=== PATIENT | male | born 1975 | race American Indian/Alaskan Native ===

== ENCOUNTER 2020-12-06 04:51 | Emergency (ER) | payer SELFPAY ==
--- NOTE | 2020-12-06 05:47 | Event Note ---
ED Screening Note Date of service: 12/06/20 Time: 05:46 ED Screening Note: Patient complains of headache and vision changes Out of BP meds, normally takes amlodipine No prior history of stroke per patient BP noted to be within normal limits here in triage Heart rate 111 This initial assessment/diagnostic orders/clinical plan/treatment(s) is/are subject to change based on patients health status, clinical progression and re- assessment by fellow clinical providers in the ED. Further treatment and workup at subsequent clinical providers discretion. Patient/guardian urged not to elope from the ED as their condition may be serious if not clinically assessed and managed. Initial orders include: Labs
--- NOTE | 2020-12-06 06:16 | XRay Report ---
CHEST 2 VIEWS INDICATION: Palpitations. COMPARISON: None. FINDINGS: Support devices: None. Heart: Within normal limits. Lungs/Pleura: No acute air space or interstitial disease. No significant pleural effusion. IMPRESSION: No acute findings. Signer Name: Jez Marte MD Signed: 12/06/2020 6:12 AM Workstation Name: [id number]
[2020-12-06 06:29] LABS: Hematocrit 41.9 % (35.5-45.6); Hemoglobin 14.3 gm/dl (11.8-15.2); Mean Corpuscular HGB Conc 34 % (32-34); Mean Corpuscular Volume 85 fl (84-94); Platelet Count 301 K/mm3 (140-440); Red Blood Count 4.94 M/mm3 (3.65-5.03); Red Cell Distribution Width 13.9 % (13.2-15.2)
[2020-12-06 06:37] LABS: Basophils % (Auto) 0.3 % (0.0-1.8); Eosinophils # (Auto) 0.1 K/mm3 (0.0-0.4); Eosinophils % (Auto) 0.4 % (0.0-4.3); Lymphocytes # (Auto) 0.9 K/mm3 (1.2-5.4); Lymphocytes % (Auto) 5.2 % (13.4-35.0); Monocytes # (Auto) 0.8 K/mm3 (0.0-0.8); Monocytes % (Auto) 4.6 % (0.0-7.3)
[2020-12-06 06:54] LABS: Alanine Aminotransferase 35 units/L (7-56); Albumin 4.2 g/dL (3.9-5); BUN/Creatinine Ratio 9; Blood Urea Nitrogen 12 mg/dL (9-20); Calcium 8.5 mg/dL (8.4-10.2); Hemolysis Index 3
[2020-12-06 07:34] VITALS: BP 124/66
--- NOTE | 2020-12-06 09:05 | Emergency Department Report ---
HPI - General Chief Complaint: High BP Time Seen by Provider: 12/06/20 08:32 - HPI HPI: This is a 45-year-old male who presents to the emergency department with complaint of some intermittent numbness/paresthesias, intermittent blurry vision, and concern for uncontrolled blood pressure. The patient does have a history of hypertension for which she was previously on amlodipine 10 mg/day. He has not been following with a primary care physician for the past 1 to 2 years. He has been sporadically taking the blood pressure medication when he is able to get some from other people. At the time of my examination the patient is asymptomatic. He denies any fever, chest pain, shortness of breath, lower extremity swelling, nausea, vomiting, diaphoresis but did previously have some palpitations. No recent travel or sick contacts at home. He is a tobacco smoker. ED Past Medical Hx - Past Medical History Previous Medical History?: Yes Hx Hypertension: Yes Additional medical history: chronic back pain - Social History Smoking Status: Current Every Day Smoker - Medications Home Medications: Home Medications Medication Instructions Recorded Confirmed Last Taken Type Amoxicillin [Trimox CAP] 1,000 mg PO Q8H #60 capsule 05/27/13 Unknown Rx Prednisone 40 mg PO QDAY #10 tablet 05/27/13 Unknown Rx lisinopriL [Zestril TAB] 10 mg PO QDAY #30 tablet 05/27/13 Unknown Rx amLODIPine 5 mg PO DAILY #30 tab 12/06/20 Unknown Rx ED Review of Systems ROS: Stated complaint: HIGH BLOOD PRESSURE Other details as noted in HPI Comment: All other systems reviewed and negative Constitutional: denies: chills, fever Eyes: vision change (Resolved). denies: eye pain ENT: denies: ear pain, throat pain Respiratory: denies: cough, shortness of breath Cardiovascular: palpitations (Resolved). denies: chest pain Gastrointestinal: denies: abdominal pain, vomiting Genitourinary: denies: dysuria, discharge Musculoskeletal: denies: back pain, arthralgia Skin: denies: rash, lesions Neurological: denies: numbness (Resolved), paresthesias (Resolved) Physical Exam - Physical Exam Vital Signs: Vital Signs 12/06/20 12/06/20 05:33 07:33 Temperature 99.2 F 98.8 F Pulse Rate 111 H 94 H Respiratory 20 16 Rate Blood Pressure 139/93 Blood Pressure 124/66 [Right] O2 Sat by Pulse 99 100 Oximetry Physical Exam: GENERAL: The patient is well-developed well-nourished. HENT: Normocephalic. Atraumatic. Patient has moist mucous membranes. Oropharynx is clear without tonsillar hypertrophy, erythema or exudates. Patient has poor dentition but there is no palpable or visible abscess is seen. No drooling or trismus. EYES: Extraocular motions are intact. No nystagmus. NECK: Supple. Trachea is midline. CHEST/LUNGS: Clear to auscultation. There is no respiratory distress noted. HEART/CARDIOVASCULAR: Regular. There is no tachycardia. There is no murmur. ABDOMEN: Abdomen is soft, nontender. Patient has normal bowel sounds. There is no abdominal distention. SKIN: Skin is warm and dry. NEURO: The patient is awake, alert, and oriented. The patient is cooperative. The patient has no focal neurologic deficits. Normal speech. Cranial nerves II through XII grossly intact. No pronator drift or dysmetria. No facial asymmetry. MUSCULOSKELETAL: There is no tenderness or deformity. There is no limitation range of motion. Radial pulse +2/4 and capillary refill less than 2 seconds to the bilateral upper extremities. ED Course Vital Signs 12/06/20 12/06/20 05:33 07:33 Temperature 99.2 F 98.8 F Pulse Rate 111 H 94 H Respiratory 20 16 Rate Blood Pressure 139/93 Blood Pressure 124/66 [Right] O2 Sat by Pulse 99 100 Oximetry ED Medical Decision Making - Lab Data Result diagrams: 12/06/20 05:48 12/06/20 05:48 - EKG Data -: EKG Interpreted by Mi EKG shows normal: sinus rhythm, axis, intervals, QRS complexes, ST-T waves Rate: normal - EKG Data When compared to previous EKG there are: previous EKG unavailable Interpretation: normal EKG - Medical Decision Making This patient presents to the emergency department with a complaint of some intermittent numbness/paresthesias, intermittent blurry vision, and concern for uncontrolled blood pressure as he has been mostly noncompliant with his amlodipine second to being out of this medication. On examination the patient does not have any focal, motor or sensory deficits and his cranial nerves are intact. At the time of my examination the patient is asymptomatic. Patient's vital signs have been reassuring throughout his ED course. He does not have significant hypertension at this time. The patient is a tobacco smoker. The patient's labs shows a mild leukocytosis of 16,000. However there is no focus of infection seen on physical examination and chest x-ray did not show any pneumonia, or any other acute process. The patient's blood sugar is about 230. He does not have any diagnosed history of diabetes. However, this may be the reason for the patient's intermittent symptoms. If the sugar is higher than t hat at different times it is possible that it is causing him to have the blurry vision, numbness and paresthesias. Also, the patient admits to having some polyuria and polydipsia. The patient does not require any emergent treatment of his blood sugar. However we discussed dietary changes including staying away from foods that are high in sugar, carbohydrates and starches. He understands that he needs a hemoglobin A1c or a fasting blood sugar test done through a primary care provider. EKG did not show any morphology consistent with ST elevation myocardial infarction. The patient previously was on amlodipine 10 mg pills. His blood pressure was not significantly elevated. We discussed dietary and/or lifestyle modifications. He will be placed on amlodipine 5 mg. He has been instructed to keep a blood pressure log and if necessary he can take 2 of the medications to make a total of 10 mg. The patient says that he plans to follow-up with [facility]. He will return to the emergency department with any worsening of his symptoms or with any acute distress. Critical Care Time: No Critical care attestation.: If time is entered above; I have spent that time in minutes in the direct care of this critically ill patient, excluding procedure time. ED Disposition Clinical Impression: History of hypertension, Noncompliance with medication regimen, Tobacco use, Hyperglycemia Disposition: DC-01 TO HOME OR SELFCARE Is pt being admited?: No Condition: Stable Instructions: Health Risks of Smoking, Hyperglycemia, Hypertension, Adult Additional Instructions: Please follow-up with a primary care physician in the next few days. Take the medication as prescribed. Try to stay away from foods that are high in salt and caffeinated products. Keep a blood pressure log. Please quit smoking. Return to the emergency department with any worsening of your symptoms, new or concerning symptoms not addressed during this current emergency department vis it, or with any acute distress. Prescriptions: amLODIPine 5 mg PO DAILY #30 tab Referrals: [facility] [Provider Group] - 2-3 Days PRIMARY CARE, [Primary Care Provider] - 2-3 Days Time of Disposition: 09:06
--- NOTE | 2020-12-06 11:16 | Electrocardiograph Report ---
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
== END 2020-12-06 09:30 | disposition home or self-care (01) ==
LOC: ED 04:51
DX: I10 Essential (primary) hypertension (principal); F17.200 Nicotine dependence, unspecified, uncomplicated; R73.9 Hyperglycemia, unspecified; Z79.899 Other long term (current) drug therapy; Z91.14 Patient's other noncompliance with medication regimen
CPT/HCPCS: 36415; 71046; 80053; 84484; 85025; 93005